=== PATIENT | male | born 1955 | race Hispanic/Latino ===

== ENCOUNTER → 2022-06-15 | Outpatient (CLI) | payer MEDICARE, MEDICAID | END | disposition home or self-care (01) | LOC: NPLAB 13:37 | PROVIDERS: ATTEND Internal Medicine | DX: R82.90 Unspecified abnormal findings in urine (principal) | CPT/HCPCS: 87086 ==

== ENCOUNTER → 2023-08-13 | Outpatient (CLI) | payer MEDICARE, MEDICAID ==
[2023-08-13 17:26] LABS: BASOPHIL % 0.4 % (0.0-0.2); EOSINOPHIL # 0.1 10^3/uL (0.0-0.2); EOSINOPHIL % 3.1 % (0.0-5.0); HEMATOCRIT(ML) 37.7 % (37.0-53.0); HEMOGLOBIN 12.2 g/dL (13.9-16.3); LYMPHOCYTES # 1.48 10^3/uL1 (1.0-4.8); LYMPHOCYTES % 32.5 % (24.0-44.0); MEAN CORP HGB 29.1 pg (26-34); MEAN CORP HGB CONCENTRATION 32.4 g/dL (33-36.5); MONOCYTES # 0.4 10^3/uL (0.3-0.8); MONOCYTES % 8.8 % (5.0-12.0); NEUTROPHIL # 2.5 10^3/uL (1.8-7.7); PLATELET COUNT 218 10^3/uL (150-400); RED BLOOD CELL 4.19 10^6/uL (4.50-5.90); RED CELL DISTRIBUTION WIDTH 13.8 % (11.5-14.5); WHITE BLOOD CELL 4.6 10^3/uL (4.5-11.0)
[2023-08-13 17:27] LABS: BILIRUBIN,URINE NEGATIVE (NEGATIVE); LEUKOCYTE ESTERASE ,URINE NEGATIVE (NEGATIVE); NITRATE,URINE NEGATIVE (NEGATIVE); UROBILINOGEN,URINE 0.2 E.U./dL (0.2)
[2023-08-13 17:28] LABS: +ADD MANUAL DIFF(NO CHRG) NO; APPEARANCE,URINE CLEAR; UA COLOR YELLOW
[2023-08-13 17:37] LABS: ALBUMIN(ML) 3.2 g/dL (3.4-5.0); ALBUMIN/GLOBULIN RATIO 1.142; ANION GAP 15.9; BUN/CREATININE RATIO 12.79 (10.0-20.0); CALCIUM 8.6 mg/dL (8.4-10.5); CARBON DIOXIDE 21.8 mmol/L (20.0-32); CREATININE SERUM 0.86 mg/dL (0.59-1.40); POTASSIUM 3.7 mmol/L (3.6-5.2)
== END | disposition home or self-care (01) ==
LOC: NPLAB 17:05
PROVIDERS: ATTEND Internal Medicine
DX: G40.89 Other seizures (principal); R41.82 Altered mental status, unspecified; M62.50 Muscle wasting and atrophy, not elsewhere classified, unspecified site
CPT/HCPCS: 36415; 80053; 81003; 85025

== ENCOUNTER → 2023-12-12 | Outpatient (CLI) | payer MEDICARE, MEDICAID ==
[2023-12-12 18:53] LABS: BASOPHIL % 0.4 % (0.0-0.2); EOSINOPHIL # 0.2 10^3/uL (0.0-0.2); EOSINOPHIL % 3.3 % (0.0-5.0); HEMATOCRIT(ML) 38.3 % (37.0-53.0); HEMOGLOBIN 12.2 g/dL (13.9-16.3); LYMPHOCYTES # 1.46 10^3/uL1 (1.0-4.8); LYMPHOCYTES % 25.6 % (24.0-44.0); MEAN CORP HGB 29.1 pg (26-34); MEAN CORP HGB CONCENTRATION 31.9 g/dL (33-36.5); MEAN CORP VOLUME 91.4 fL (78-100); MONOCYTES # 0.6 10^3/uL (0.3-0.8); MONOCYTES % 10.5 % (5.0-12.0); NEUTROPHIL # 3.4 10^3/uL (1.8-7.7); NEUTROPHILS % 60.2 % (41.0-85.0); PLATELET COUNT 233 10^3/uL (150-400); RED BLOOD CELL 4.19 10^6/uL (4.50-5.90); RED CELL DISTRIBUTION WIDTH 14.6 % (11.5-14.5); WHITE BLOOD CELL 5.7 10^3/uL (4.5-11.0)
[2023-12-12 18:58] LABS: BILIRUBIN,URINE NEGATIVE (NEGATIVE); LEUKOCYTE ESTERASE ,URINE NEGATIVE (NEGATIVE); NITRATE,URINE NEGATIVE (NEGATIVE); UROBILINOGEN,URINE 0.2 E.U./dL (0.2)
[2023-12-12 19:00] LABS: +ADD MANUAL DIFF(NO CHRG) NO
[2023-12-12 19:09] LABS: APPEARANCE,URINE CLEAR; UA COLOR YELLOW
[2023-12-12 19:15] LABS: ALBUMIN(ML) 3.5 g/dL (3.4-5.0); ALBUMIN/GLOBULIN RATIO 1.129; ANION GAP 15.6; BUN/CREATININE RATIO 16.21 (10.0-20.0); CALCIUM 8.5 mg/dL (8.4-10.5); CARBON DIOXIDE 21.3 mmol/L (20.0-32); CREATININE SERUM 0.74 mg/dL (0.59-1.40); EST GFR, NON-AA 105.5 (>/=60); POTASSIUM 3.9 mmol/L (3.6-5.2)
== END | disposition home or self-care (01) ==
LOC: NPLAB 18:14
PROVIDERS: ATTEND Internal Medicine
DX: I63.50 Cerebral infarction due to unspecified occlusion or stenosis of unspecified cerebral artery (principal); D51.9 Vitamin B12 deficiency anemia, unspecified; F01.50 Vascular dementia, unspecified severity, without behavioral disturbance, psychotic disturbance, mood disturbance, and anxiety; G40.89 Other seizures
CPT/HCPCS: 36415; 80053; 81003; 85025